=== PATIENT | female | born 1950 | race Two or more races ===

== ENCOUNTER 2022-08-29 05:36 | Emergency (ER) | payer OTHER ==
[~2022-08-29] VITALS: Ht 162.6 cm; Wt 113.0 kg
[2022-08-29] MEDS ORDERED: KETOROLAC TROMETH 30 MG/ML 1ML VIAL IM ONE (06:45)
[2022-08-29] MEDS ORDERED: HYDROcodone-ACET 5/325MG TAB PO ONE (06:45)
[2022-08-29] MEDS ORDERED: CYCLOBENZAPRINE HCL 10 MG TAB PO ONE (06:45)
[2022-08-29 09:00] VITALS: BP 124/68
== END 2022-08-29 09:01 | disposition home or self-care (01) ==
LOC: EDBD 05:36 → ER 05:36
DX: G89.29 Other chronic pain (principal); M25.562 Pain in left knee; M54.50 Low back pain, unspecified; I48.91 Unspecified atrial fibrillation; Z90.710 Acquired absence of both cervix and uterus
CPT/HCPCS: 96372; 99283; J1885

== ENCOUNTER 2025-05-24 05:33 | Emergency (ER) | payer OTHER ==
[~2025-05-24] VITALS: Ht 162.6 cm; Wt 123.0 kg
[2025-05-24 05:51] VITALS: BP 151/71; PULSE 82; TEMP 99.5
[2025-05-24 06:02] VITALS: RESP 24; O2SAT 95
--- NOTE | 2025-05-24 06:44 | ED.PDOC ---
History of Present Illness HPI Comments 74 y/o F, is THOMPSON, with PMHx of arthritis and AFib, presents to the ED for CC of Flu-like symptoms. Patient states, she has been experiencing flu-like symptoms including: cough and congestion sudden onset, yesterday (05/23/25). Patient denies chest pain, fever, chills, body-aches, or loss of taste and smell. No other associated symptoms, modifiers, recent injuries or sick contacts are present at this time. 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 History Family History Family History: Unknown Social History Smoker: Non-Smoker Alcohol: Denies ETOH Use Drugs: Denies Drug Use Lives In: Home Constitutional: denies: chills, diaphoresis, fatigue, fever, malaise, sweats, weakness, others EENTM: reports: nose congestion; denies: blurred vision, double vision, ear ble eding, ear discharge, ear drainage, ear pain, ear ringing, eye pain, eye redness, hearing loss, mouth pain, mouth swelling, nasal discharge, nose bleeding, nose pain, photophobia, tearing, throat pain, throat swelling, voice changes, others Respiratory: reports: cough; denies: hemoptysis, orthopnea, SOB at rest, shortness of breath, SOB with excertion, stridor, wheezing, others Cardiovascular: denies: chest pain, dizzy spells, diaphoresis, Dyspnea on exertion, edema, irregular heart beat, left arm pain, lightheadedness, palpitations, PND, syncope, others Gastrointestinal: denies: abdomen distended, abdominal pain, blood streaked bowels, constipated, diarrhea, dysphagia, difficulty swallowing, hematemesis, melena, nausea, poor appetite, poor fluid intake, rectal bleeding, rectal pain, vomiting, others Genitourinary: denies: abnormal vagina bleeding, burning, dyspareunia, dysuria, flank pain, frequency, hematuria, incontinence, pain, , vagina discharge, urgency, others Neurological: denies: dizziness, fainting, headache, left sided numbness, left sided weakness, numbness, paresthesia, pre-existing deficit, right sided numbnes s, right sided weakness, seizure, speech problems, tingling, tremors, weakness, others Musculoskeletal: denies: back pain, gout, joint pain, joint swelling, muscle pain, muscle stiffness, neck pain, others Integumetry: denies: bruises, change in color, change in hair/nails, dryness, laceration, lesions, lumps, rash, wounds, others Allergic/Immunocompromised: denies: Difficulty Healing, Frequent Infections, Hives, Itching, others Hematologic/Lymphatic: denies: anemia, blood clots, easy bleeding, easy bruising, swollen glands, others Endocrine: denies: excessive hunger, excessive sweating, excessive thirst, excessive urination, flushing, intolerance to cold, intolerance to heat, unexplained weight gain, unexplained weight loss, others Psychiatric: denies: anxiety, bipolar disorder, depression, hopeless, panic disorder, schizophrenia, sleepless, suicidal, others All Other Systems: Reviewed and Negative Physical Exam General Appearance: Moderate Distress HEENT: Normal ENT Inspection, Pharynx Normal, TMs Normal Neck: Full Range of Motion, Non-Tender, Normal, Normal Inspection Respiratory: Chest Non-Tender, Lungs Clear, No Accessory Muscle Use, No Respiratory Distress, Normal Breath Sounds Cardiovascular: No Edema, No JVD, No Murmur, No Gallop, Normal Peripheral Pulses, Regular Rate/Rhythm Breast Exam: Deferred Gastrointestinal: No Organomegaly, Non Tender, No Pulsatile Mass, Normal Bowel Sounds, Soft Genitalia: Deferred Pelvic: Deferred Rectal: Deferred Extremities: Pedal edema, Swelling (Bilateral lower extremity) Musculoskeletal : Apperance: Normal Neurologic: Alert, No Motor Deficits, No Sensory Deficits Cerebellar Function: NOT DONE Reflexes: NOT DONE Skin: Normal Color Peripheral Pulses: 3+ Radial (R), 3+ Radial (L) Lymphatic: No Adenopathy Was a procedure done? Was a procedure done?: No Differential Dx Considerations may include: URI, PHARYNGITIS, SINUITIS, INFLUENZA, COVID-19 X-Ray, Labs, Meds, VS Vital Signs Date Time Temp Pulse Resp B/P (MAP) Pulse Ox O2 Delivery O2 Flow Rate FiO2 05/24/25 06:02 24 95 Nasal Cannula* 4 36 05/24/25 05:51 82 05/24/25 05:51 99.5 82 24 151/71 95 99.5 Patient alert. Came in because of shortness a breath. Placed on oxygen. Heart rate within normal limits. Blood pressure slightly elevated. She does have bilateral lower extremity swelling possibly from CHF. Mild fever. Possible pneumonia. Explained to the patient that she will be treated with antibiotics. Continue monitoring. Time of 1ST Reevaluation: 07:00 Reevaluation 1ST: Unchanged Patient Education/Counseling: Diagnosis, Treatment Family Education/Counseling: No Family Present SEPSIS Sepsis Screen Date sepsis recognized/suspect: May 24, 2025 Time Sepsis recognized/suspect: 558 Recent Procedure: No On Antibiotic Therapy: No Respiratory Rate >20: No Heart Rate >90: No Temp<36 C (96.8 F) or >38.3 C: No SBP <90 or MAP <65 mmHG: No New Acute Mental Status Change: No Is the patient on CPAP, BIPAP,: No Physician Orders Complete Blood Count (05/24/25 06:29) Chest Portable (05/24/25 06:29) Urinalysis (05/24/25 06:29) Basic Metabolic Panel (05/24/25 06:29) [facility] Inhouse Covid19 (05/24/25 06:29) Rapid Influenza A&B (05/24/25 06:29) Vital Signs Date Time Temp Pulse Resp B/P (MAP) Pulse Ox O2 Delivery O2 Flow Rate FiO2 05/24/25 06:02 24 95 Nasal Cannula* 4 36 05/24/25 05:51 82 05/24/25 05:51 99.5 82 24 151/71 95 99.5 Departure 1 Departure Time of Disposition: 06:56 Impression: Primary Impression: Acute respiratory distress Additional Impression: Pneumonia Qualified Codes: J18.9 - Pneumonia, unspecified organism Disposition: ADMITTED INPATIENT Admit to: Med Surg Condition: Guarded Critical Care Note Critical Care Time?: Yes (90 min-critical care time only) Stability Stability form required: No Heart Score Heart Score: Heart Score Response (Comments) Value History N/A 0 EKG N/A 0 Age N/A 0 Risk Factors N/A 0 Troponin N/A 0 Total 0 I personally scribed for MANUEL BANKS MD ([email or web address]) on 05/24/25 at 06:44. Electronically submitted by Elisabeth Merlos ([email or web address]). MANUEL BANKS MD May 24, 2025 06:44
[2025-05-24 07:02] LABS: Hematocrit 34.0 % (36.0-46.0); Hemoglobin 11.2 g/dL (12.2-16.2); Mean Corpuscular Hemoglobin 27.1 pg (28.0-32.0); Mean Corpuscular Volume 82.5 fL (80.0-100.0); Nucleated Red Blood Cells % 0.0 %
[2025-05-24 07:09] LABS: Anion Gap 9 (5-15); Carbon Dioxide 29 mmol/L (20-31); Chloride 103 mmol/L (98-107); Potassium 3.6 mmol/L (3.5-5.1); Sodium 141 mmol/L (136-145)
[2025-05-24 07:10] LABS: Calcium 9.3 mg/dL (8.7-10.4)
[2025-05-24 07:15] LABS: BUN/Creatinine Ratio 12.1 (10.0-20.0)
[2025-05-24 07:16] LABS: Blood Urea Nitrogen 8 mg/dL (9-23); Glucose 107 mg/dL (74-106)
== END 2025-05-24 06:54 | disposition left against medical advice (07) ==
LOC: ER 05:33 → EDBD 05:33 → ER 06:54
DX: J18.9 Pneumonia, unspecified organism (principal); J96.00 Acute respiratory failure, unspecified whether with hypoxia or hypercapnia; I48.91 Unspecified atrial fibrillation; M19.90 Unspecified osteoarthritis, unspecified site; Z90.710 Acquired absence of both cervix and uterus
CPT/HCPCS: 36415; 80048; 85025; 99291; 99292